=== PATIENT | male | born 1990 | race Caucasian/White ===

== ENCOUNTER 2017-08-11 16:43 | Emergency (ER) | payer OTHER ==
--- NOTE | 2017-08-11 16:55 | PDOC ---
Rapid Medical Evaluation Time Seen by Provider: 08/11/17 16:54 Medical Evaluation: 08/11/17 16:55 26 year old male with history of HLD, GERD presenting with pain/tenderness at left side of head after hitting his head yesterday, no LOC. No nausea/vomiting, no visual changes. Alert and oriented. No focal neurologic deficits. V/s unremarkable. To FT for further evaluation.
[2017-08-11 17:03] VITALS: BP 125/73; PULSE 69; TEMP 97.3; BMI 27.8
[2017-08-11] MEDS ORDERED: IBUPROFEN 600 MG TABLET (FP) PO ONE ×2 (17:42→17:44)
--- NOTE | 2017-08-11 17:46 | PDOC ---
History of Present Illness - General Chief Complaint: Headache Stated Complaint: HEAD PAIN Time Seen by Provider: 08/11/17 16:54 History Source: Patient Exam Limitations: No Limitations - History of Present Illness Initial Comments: 08/11/17 17:42 CHIEF COMPLAINT: Superficial left scalp pain HISTORY OF PRESENT ILLNESS: Patient is a 26-year-old male denies any significant medical history currently on no medication reports yesterday was at work up in the back of his truck and a hand truck came out and hit him on the left posterior scalp. Patient denied any LOC, no nausea vomiting, no visual disturbance, no unsteady gait, pain is superficial to left side of head posterior left ear. There is no visible injury. Patient has not attempted to take any medication for pain. Patient denies headache. Was just concerned because he felt a bump and still has pain localized to area. PMH: [None MEDS:[ None] ALLERGIES: [None] PCP: [None] REVIEW OF SYSTEMS: GENERAL/CONSTITUTIONAL: Awake alert and oriented HEAD, EYES, EARS, NOSE AND THROAT: No change in vision. No facial edema, no bruising. NO active bleeding. Nares intact. RESPIRATORY: No cough, wheezing, or hemoptysis. CARDIAC: Denies chest pain, no shortness of breathe. MUSCULOSKELETAL: No spinal point tenderness, Good ROM to all four extremeties. NO CVA tenderness. [] lateral neck pain. GI/: Denies abdominal pain, no nausea or vomiting, no bloody stool, no Hematuria. SKIN : No erythema or bruising noted. No abrasion or lacerations. Pain to left posterior scalp. No palpable edema, fluctuance, no visible hematoma. NEUROLOGIC: No loss of consciousness, no numbness or tingling. PHYSICAL EXAM: GENERAL: Awake and alert and oriented x3. EYES: The pupils are equal, round, and reactive to light, with clear, conjunctiva. Good extraocular movement. No nystagmus NOSE: No nasal trauma . Midface stable MOUTH: Teeth intact. EARS: The ear canals and tympanic membranes are normal without trauma. No drainage. NECK: No Lower cervical C-spine tenderness, no pain with chin to chest. CHEST: The lungs are clear without crackles, or wheezes. No subcutaneous emphysema. No crepitus. HEART: Heart is regular rhythm, with normal S1 and S2, no murmurs. ABDOMEN: The abdomen is soft and nontender with normal bowel sounds. There is no guarding or rebound. MUSCULOSKELETAL: No spinal point tenderness. No bruising or erythema. Pelvis stable. EXTREMITIES: Extremities are normal. No visible traumatic injury. NEUROLOGICAL:Mental status: The patient is oriented x3. No Generalized headache , Romberg [-] Cranial nerves: Cranial nerves II through XII are intact Motor: The upper extremities are 5 over 5 in all muscle groups. The lower extremities are 5 over 5 in all muscle groups. Sensation: Sensation is intact to light touch throughout. Cerebellar: Oaveay-lsuxbd-euxl is normal in both upper extremities. Heel-knee- moreno is normal in both lower extremities. Reflexes: 2+ and symmetric in the upper and lower extremities. Gait: Normal. Heel and toe walking are normal. Tandem gait is normal. SKIN: Without edema, erythema or bruising. No abrasions or lacerations. Pain to left posterior scalp. No palpable edema, fluctuance, no visible hematoma. Past History - Past Medical History Allergies/Adverse Reactions: Allergies Allergy/AdvReac Type Severity Reaction Status Date / Time No Known Allergies Allergy Verified 08/11/17 17:00 COPD: No GI Disorders: Yes (GERD) Hypercholesterolemia: Yes - Suicide/Smoking/Psychosocial Hx Smoking History: Never smoked *Physical Exam - Vital Signs Last Vital Signs Temp Pulse Resp BP Pulse Ox 97.3 F L 69 18 125/73 98 08/11/17 17:00 08/11/17 17:00 08/11/17 17:00 08/11/17 17:00 08/11/17 17:00 Medical Decision Making - Medical Decision Making 08/11/17 17:45 A/P: Patient here for evaluation of pain, superficially to left posterior scalp patient was hit in the head yesterday with a hand truck that he fell out of his truck when he up in the back door. He denies any LOC, nausea vomiting, no unsteady gait, no visual disturbance, no headache. Pain is superficial to scalp patient was just concerned because pain continue 24 hours after incident. No visible hematoma, no fluctuance to area, no step-off. I will give patient Motrin I have encouraged patient to return if any increased headache, nausea vomiting, unsteady gait, or any other concerns. Pain is superficial, localized injury. I discussed the physical exam findings, ancillary test results and final diagnoses with the patient. I answered all of the patient's questions. The patient was satisfied with the care received and felt comfortable with the discharge plan and treatment plan. The patient will call to arrange follow-up and will return to the Emergency Department with any new, persistent or worsening symptoms. *DC/Admit/Observation/Transfer Diagnosis at time of Disposition: Scalp injury Qualifiers: Encounter type: initial encounter Qualified Code(s): S09.90XA - Unspecified injury of head, initial encounter - Discharge Dispostion Disposition: HOME Condition at time of disposition: Stable Admit: No - Referrals Referrals: Taya Harp MD [Primary Care Provider] - - Patient Instructions Printed Discharge Instructions: DI for Closed Head Injury Additional Instructions: If any vomiting, headache, unsteady gait, visual disturbance, or any other concerns return immediately to ER otherwise area may superficially hurt for several days me take Motrin or Tylenol for pain. - Post Discharge Activity Forms/Work/School Notes: Back to Work
== END 2017-08-11 17:53 | disposition home or self-care (01) ==
LOC: JERFT 16:43
DX: S09.90XA Unspecified injury of head, initial encounter (principal); W20.8XXA Other cause of strike by thrown, projected or falling object, initial encounter; Y93.89 Activity, other specified; Y92.9 Unspecified place or not applicable; Y99.0 Civilian activity done for income or pay
CPT/HCPCS: 99281-25